=== PATIENT | female | born 1990 | race Caucasian/White ===

== ENCOUNTER 2023-05-27 08:50 | Emergency (ER) | payer OTHER ==
[~2023-05-27] VITALS: Ht 157.5 cm; Wt 66.0 kg
[2023-05-27 09:03] VITALS: BP 135/86; PULSE 100; RESP 18; TEMP 97.8; O2SAT 99
[2023-05-27] MEDS: BACITRACIN ZINC OINT UDPKT TOP ONE (10:15)
[2023-05-27] MEDS: LIDOCAINE HCL/PF 1% 10 MG/ML 5ML VIAL INFIL ONE (10:15)
[2023-05-27] MEDS ORDERED: AMOX1TAB16 MT (11:50)
[2023-05-27] MEDS ORDERED: TOPUD MT (11:50)
== END 2023-05-27 12:06 | disposition home or self-care (01) ==
LOC: ER 08:50
DX: S61.210A Laceration without foreign body of right index finger without damage to nail, initial encounter (principal); R07.81 Pleurodynia; Z98.890 Other specified postprocedural states; Z98.51 Tubal ligation status; W45.8XXA Other foreign body or object entering through skin, initial encounter; Y93.89 Activity, other specified; Y92.89 Other specified places as the place of occurrence of the external cause; Y99.8 Other external cause status
CPT/HCPCS: 71045; 73140; 12002; 99284; J3490; Z7610 ×2

== ENCOUNTER 2023-11-22 03:16 | Emergency (ER) | payer MEDICAID, OTHER ==
[~2023-11-22] VITALS: Ht 162.6 cm; Wt 75.0 kg
[~2023-11-22 03:16] MED LIST: AMOX1TAB16 MT; TOPUD MT
[2023-11-22 03:21] VITALS: O2SAT 98
[2023-11-22] MEDS: IBUPROFEN 600MG TABLET PO STA (04:03)
[2023-11-22] MEDS ORDERED: IBUP-2029 MT (05:20)
[2023-11-22 05:50] VITALS: BP 135/91; PULSE 85; RESP 16; TEMP 98.4
== END 2023-11-22 05:50 | disposition home or self-care (01) ==
LOC: ER 03:16
DX: S29.8XXA Other specified injuries of thorax, initial encounter (principal); S00.83XA Contusion of other part of head, initial encounter; F41.9 Anxiety disorder, unspecified; Z98.51 Tubal ligation status; Z98.890 Other specified postprocedural states; Y08.89XA Assault by other specified means, initial encounter; Y93.89 Activity, other specified; Y92.89 Other specified places as the place of occurrence of the external cause; Y99.8 Other external cause status
CPT/HCPCS: 70486; 71045; 99284